=== PATIENT | female | born 1945 | race Caucasian/White ===

== ENCOUNTER 2018-10-30 22:49 | Emergency (ER) | payer OTHER, SELFPAY ==
[2018-10-30 23:03] VITALS: BP 159/113; PULSE 82; RESP 16; TEMP 36.6; O2SAT 99; BMI 30.9
[2018-10-30] MEDS: OFLOXACIN 0.3% OPHTH PREPACK 1 BOTTLE MISC (23:25)
--- NOTE | 2018-10-30 23:29 | ED_ITS ---
HPI - Eye Problem General Chief complaint: Eye Problems Stated complaint: thinks she has pink eye Time Seen by Provider: 10/30/18 22:50 Source: patient Mode of arrival: ambulatory Limitations: no limitations History of Present Illness HPI Narrative: 72-year-old female, nonsmoker presents to the emergency department with an itchy, scratchy right eye over the past day. She has got a bit of redness but denies any matting, drainage or exudate. She denies any injury or chance of foreign body. She does not wear contacts. She denies blurred vision just states that it is itchy. She had a conjunctivitis that was rather impressive a few years ago and therefore has a bit of concern about this happening again. She denies any pain MD chief complaint: eye redness Onset (ago): hour(s) Onset description: gradual Duration: constant Location: right eye Eye Symptoms: redness and itching Place: home Severity: mild Associated symptoms: none Treatments Prior to Arrival: none Related Data Patient tetanus UTD: Yes Allergies Allergy/AdvReac Type Severity Reaction Status Date / Time No Known Drug Allergies Allergy Verified 10/30/18 23:18 Review of Systems Constitutional Denies chills, Denies fever(s), Denies lethargy and Denies weakness Eyes Denies change in vision, Denies eye discharge, Reports irritation, Reports itchy eyes and Denies loss of vision ENT Ears, Nose, Mouth, and Throat: Denies change in voice, Denies neck pain and Denies sore throat Cardiovascular Denies chest pain, Denies irregular heart rhythm, Denies lightheadedness, Denies palpitations, Denies dyspnea, Denies dyspnea on exertion and Denies orthopnea Respiratory Denies cough, Denies dyspnea, Denies dyspnea on exertion and Denies wheezing Gastrointestinal Gastrointestinal: Denies abdominal pain, Denies change in bowel habits, Denies diarrhea, Denies nausea and Denies vomiting Genitourinary Denies hematuria, Denies flank pain, Denies urinary incontinence and Denies urinary urgency Musculoskeletal Denies neck pain Integumentary/Breasts Denies pruritus, Denies erythema, Denies rash and Denies wounds Neurologic Denies confusion, Denies loss of vision and Denies weakness Psychiatric Denies anxiety, Denies confusion, Denies depression, Denies homicidal ideation and Denies suicidal ideation Endocrine Denies palpitations Hematologic/Lymphatic Denies easy bruising Allergic/Immunologic Reports itchy eyes and Denies wheezing PFSH Social History Smoking Status: Never smoker Social History Smoking Status: Never smoker Exam Narrative Exam Narrative: GEN: AOx3 and in mild distress EYES: Pupils are equal, round, and reactive to light and accommodation. Extraoccular muscles are intact bilaterally. Mild R eye injection, no matting or exudate. Visualized under Wood's lamp, no foreign body noted, upper lid everted. Fluorescein placed in eye, no dye uptake CHEST: Lungs are clear to auscultation bilaterally and free of wheezes, rales, or rhonchi. Heart rate is regular rhythm, there are no murmurs, clicks, rubs, or gallops. There is no chest wall tenderness. ABD: Abdomen is soft and nontender. There is no guarding or rebound. Bowel sounds are normal in all 4 quadrants. There is no mass or organomegaly. EXT: Full painless ROM of all extremities with no loss of sensation or strength. SKIN: Warm, pink, and dry. No erythema or rash Initial Vital Signs Initial Vital Signs: Vital Signs Temperature 97.8 F 10/30/18 23:03 Pulse Rate 82 10/30/18 23:03 Respiratory Rate 16 10/30/18 23:03 Blood Pressure 159/113 H 10/30/18 23:03 Pulse Oximetry 99 10/30/18 23:03 Course Orders Ordered: Discontinued Medications Ofloxacin (Ocuflox) 1 bottle MISC SEEINSTR ONE Stop: 10/30/18 23:19 Last Admin: 10/30/18 23:25 Dose: 2 drop Vital Signs - 8 hr 10/30/18 23:03 Temperature 97.8 F Pulse Rate 82 Respiratory Rate 16 Blood Pressure 159/113 H Pulse Oximetry 99 Discharge Plan Departure Patient Disposition: Home Clinical Impression: Acute conjunctivitis, right eye Discharge Date/Time: 10/30/18 23:27 Interventions: ED Discharge Assessment Last Done: 10/30/18 23:25 Instructions: DI for Conjunctivitis Activity Restrictions/Additional Instructions: *You have been diagnosed with [ acute right eye conjunctivitis ] *What to do: *Take medications as directed *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 Let them know you were seen in the Emergency Department and that we ask that you be seen in follow up *Return to ER if you should have any new, worsening or concerning symptoms
== END 2018-10-30 23:27 | disposition home or self-care (01) ==
PROVIDERS: Emergency Provider Emergency Medicine
DX: H10.31 Unspecified acute conjunctivitis, right eye (principal)
CPT/HCPCS: 99283